=== PATIENT | male | born 1980 | race Caucasian/White ===

== ENCOUNTER 2018-10-10 21:27 | Emergency (ER) | payer BC ==
--- NOTE | 2018-10-10 23:18 | EDM.PDOC ---
ED HPI GENERAL MEDICAL PROBLEM - General Chief Complaint: Gastrointestinal Problem Stated Complaint: VOMITING Time Seen by Provider: 10/10/18 22:57 Source of Information: Reports: Patient, RN Notes Reviewed History Limitations: Reports: No Limitations - History of Present Illness INITIAL COMMENTS - FREE TEXT/NARRATIVE: The patient states that he developed nausea with emesis and epigastric abdominal pain around 03:00 this morning, and that he has vomited a lot today. There has not been any blood in his emesis. He describes the abdominal pain like a gas bubble or pressure. It extends to the right upper quadrant and through to his right scapular area. The pain is made worse if he belches, is upright, or lying on either side. He feels better if he is lying supine. No recent fever. He states that he had watery diarrhea 2 days ago, that resolved. No urinary symptoms. No lightheadedness when he stands. The patient states that he has had similar symptoms, about 2-4 times a year, over the past 4-5 years, but he has not had a prior medical evaluation for it, because his symptoms typically resolve after 3-4 hours. No recent spoiled food. No similarly ill contacts. No recent antibiotics. No recent travel. The patient does not have a PCP. Epigastric Pain Score (Numeric/FACES): 10 - Related Data Allergies Allergy/AdvReac Type Severity Reaction Status Date / Time No Known Allergies Allergy Verified 10/10/18 22:19 Home Meds: Home Meds Ondansetron [Zofran ODT] 1 tab PO Q8H PRN #10 tab.dis 10/11/18 [Rx] Past Medical History Musculoskeletal History: Reports: Fracture (C2, C4. Left forearm.) - Past Surgical History Neurological Surgical History: Reports: C-Spine (C2 internal fixation) Social & Family History - Tobacco Use Smoking Status *Q: Never Smoker - Alcohol Use Alcohol Use History: No - Recreational Drug Use Recreational Drug Use: No - Living Situation & Occupation Living situation: Reports: , with Spouse, with Family (5 kids) Occupation: Employed ([employer] Teacher) ED ROS GENERAL - Review of Systems Review Of Systems: ROS reveals no pertinent complaints other than HPI. ED EXAM, GI/ABD - Physical Exam Exam: See Below Exam Limited By: No Limitations General Appearance: Alert, WD/WN, No Apparent Distress Eyes: Bilateral: Normal Appearance, EOMI Ears: Normal External Exam, Hearing Grossly Normal Nose: Normal Inspection Throat/Mouth: Normal Inspection, Normal Lips, Normal Voice, No Airway Compromise Head: Atraumatic, Normocephalic Neck: Normal Inspection, Full Range of Motion Respiratory/Chest: No Respiratory Distress, Lungs Clear, Normal Breath Sounds, No Accessory Muscle Use Cardiovascular: Normal Peripheral Pulses, Regular Rate, Rhythm, No Edema, No Gallop, No JVD, No Murmur, No Rub GI/Abdominal Exam: Normal Bowel Sounds, Soft, No Organomegaly, No Distention, No Abnormal Bruit, No Mass, Tender (Right upper quadrant through the epigastrium. Nontender elsewhere.) (Male) Exam: Deferred Rectal (Males) Exam: Deferred Back Exam: Normal Inspection, Full Range of Motion. No: CVA Tenderness (L), CVA Tenderness (R) Extremities: Normal Inspection, Normal Range of Motion, No Pedal Edema, Normal Capillary Refill Neurological: Alert, Oriented, Normal Cognition, No Motor/Sensory Deficits Psychiatric: Normal Affect Skin Exam: Warm, Dry, Intact, Normal Color, No Rash Course - Vital Signs Last Recorded V/S: Last Vital Signs Temp 36.8 C 10/10/18 22:17 Pulse 92 10/10/18 22:17 Resp 18 10/10/18 22:17 BP 148/88 H 10/10/18 22:17 Pulse Ox 100 10/10/18 22:17 - Orders/Labs/Meds Labs: Laboratory Tests 10/10/18 10/10/18 10/10/18 Range/Units 22:23 22:23 22:23 WBC 16.39 H (4.23-9.07) K/mm3 RBC 6.45 H (4.63-6.08) M/mm3 Hgb 18.3 H (13.7-17.5) gm/L Hct 52.5 H (40.1-51.0) % MCV 81.4 (79.0-92.2) fl MCH 28.4 (25.7-32.2) pg MCHC 34.9 (32.2-35.5) g/dl RDW Std Deviation 40.3 (35.1-43.9) fL Plt Count 210 (163-337) K/mm3 MPV 10.9 (9.4-12.3) fl Neutrophils % (Manual) 74 H (40-60) % Band Neutrophils % 1 (0-10) % Lymphocytes % (Manual) 19 L (20-40) % Atypical Lymphs % 0 % Monocytes % (Manual) 5 (2-10) % Eosinophils % (Manual) 1 (0.8-7.0) % Basophils % (Manual) 0 L (0.2-1.2) Platelet Estimate Adequate RBC Morph Comment Normal Sodium 143 (136-145) mEq/L Potassium 3.8 (3.5-5.1) mEq/L Chloride 103 (98-107) mEq/L Carbon Dioxide 23 (21-32) mEq/L Anion Gap 20.8 H (5-15) BUN 18 (7-18) mg/dL Creatinine 1.4 H (0.7-1.3) mg/dL Est Cr Clr Drug Dosing 83.18 mL/min Estimated GFR (MDRD) 57 (>60) mL/min BUN/Creatinine Ratio 12.9 L (14-18) Glucose 124 H (74-106) mg/dL Calcium 10.4 H (8.5-10.1) mg/dL Total Bilirubin 0.8 (0.2-1.0) mg/dL AST 21 (15-37) U/L ALT 48 (16-63) U/L Alkaline Phosphatase 112 (46-116) U/L Total Protein 8.8 H (6.4-8.2) g/dl Albumin 4.6 (3.4-5.0) g/dl Globulin 4.2 gm/dL Albumin/Globulin Ratio 1.1 (1-2) Lipase 155 (73-393) U/L Meds: Medications Discontinued Medications Generic Name Dose Route Start Last Admin Trade Name Freq PRN Reason Stop Dose Admin Diatrizoate Meglum/Diatrizoate Sod 90 ml 10/11/18 00:23 10/11/18 01:20 Gastrografin 37% PO 10/11/18 00:24 90 ml ONETIME ONE Administration Hydromorphone HCl 1 mg 10/10/18 23:11 10/10/18 23:19 Dilaudid IVPUSH 10/10/18 23:12 1 mg ONETIME STA Administration Sodium Chloride 1,000 mls @ 150 mls/hr 10/10/18 23:15 10/10/18 23:19 Normal Saline IV 150 mls/hr ASDIRECTED BERNA Administration Iopamidol 100 ml 10/11/18 00:23 10/11/18 01:20 Isovue-370 (76%) IV 10/11/18 00:24 100 ml ONETIME ONE Administration Ondansetron HCl 4 mg 10/10/18 23:11 10/10/18 23:20 Zofran IVPUSH 10/10/18 23:12 4 mg ONETIME ONE Administration - Re-Assessments/Exams Free Text/Narrative Re-Assessment/Exam: 10/10/18 23:16 Although the patient states that his pain is epigastric, on examination, he has tenderness all the way to the right upper quadrant, and he states that his pain radiates through to his right scapular area, suggestive of cholecystitis. I have ordered blood work and a CT scan of the abdomen and pelvis, which will also help exclude an unusual presentation of appendicitis. In the meantime, the patient will be treated with IV Dilaudid, Zofran, and IV fluid. 10/11/18 02:45 CT of the abdomen and pelvis with oral and IV contrast is read by vRrenuka as: 1. Findings consistent with a gastroenteritis. 2. No evidence for bowel obstruction 3. Normal appendix right lower quadrant 10/11/18 02:49 Test results discussed with the patient. As above, the patient appears to have gastroenteritis. I will discharge him home with a prescription for Zofran ODT. He may take [id number] loperamide if his diarrhea recurs. I recommended that he stay adequately hydrated, and eat a bland diet if he is hungry. Departure - Departure Time of Disposition: 02:50 Disposition: Home, Self-Care 01 Condition: Good Clinical Impression: Gastroenteritis - Discharge Information *PRESCRIPTION DRUG MONITORING PROGRAM REVIEWED*: Not Applicable *COPY OF PRESCRIPTION DRUG MONITORING REPORT IN PATIENT PRINCESS: Not Applicable Prescriptions: Ondansetron [Zofran ODT] 1 tab PO Q8H PRN #10 tab.dis PRN Reason: Nausea/Vomiting Instructions: Viral Gastroenteritis, Adult, [id number] Referrals: PCP,None [Primary Care Provider] - Forms: ED Department Discharge Additional Instructions: You were seen in the emergency room for nausea, vomiting, and upper midline abdominal pain. Workup in the ER included blood work and a CT scan of your abdomen and pelvis with oral and IV contrast. Your blood work was unremarkable, but the CT scan found evidence of gastroenteritis. Based on your history, physical exam, and ER test, you are most likely suffering from viral gastroenteritis. As discussed, there are no medicines to get rid of the virus - will have to run its course, however, there are medicines that can be given to treat the symptoms. A prescription for the anti-nausea medicine Zofran has been sent to [facility], located in the [facility] across the [address] from the hospital. Dissolve one tablet of Zofran on your tongue up to every 8 hours, as needed for nausea/vomiting. If your diarrhea returns, take 2 tablets of [id number] loperamide (Imodium ) up front, then 1 tablet after each loose bowel movement, to a maximum of 8 tablets (16 mg) within a 24-hour period. Stay adequately hydrated. Gatorade is probably best. If you feel hungry, eat a bland diet, such as rice, oatmeal, bananas, or applesauce. If any other problems, please do not hesitate to return to the ER.
[2018-10-10] MEDS: HYDROmorphone 1 MG/ML Syringe IVPUSH STA (23:19)
[2018-10-10] MEDS: Sodium Chloride 0.9% 1,000 ML IV SCH (23:19)
[2018-10-10] MEDS: Ondansetron 4 MG/2 ML SDV IVPUSH ONE (23:20)
[2018-10-11] MEDS: Diatrizoate Meglumine/Diatrizoate Sodium 37% 120 ML Bottle PO ONE (01:20)
[2018-10-11] MEDS: Iopamidol 755 Mg/ML 200 ML Bottle IV ONE (01:20)
--- NOTE | 2018-10-11 06:52 | CT ---
CT abdomen and pelvis Technique: Multiple axial sections were obtained from above the dome of the diaphragm inferiorly through the pubic symphysis. Intravenous and oral contrast was utilized. Comparison: No prior abdominal imaging. Findings: Small portion of the visualized lung bases shows mild atelectasis. Liver contains no focal parenchymal abnormality. Gallbladder contains no calcified gallstones. Spleen appears within normal limits. Small hiatal hernia is seen with gastroesophageal reflux of contrast. Adrenal glands show no nodule. Pancreas is within normal limits. Kidney show symmetric contrast enhancement. No hydronephrosis or mass is seen. Aorta shows no aneurysm. No retroperitoneal adenopathy is seen. No pelvic mass or adenopathy is seen. Mildly dilated and fluid-filled loops of small bowel are seen. These findings occurred down to the terminal ileum. Findings are most likely due to ileus possibly from gastroenteritis. No free fluid or inflammatory change is seen. Appendix appears normal in size. Bone window settings were reviewed which appear within normal limits for the patient's age. Impression: 1. Dilated small bowel containing fluid. Ileus is the most likely etiology possibly from gastroenteritis. 2. Other incidental findings as noted above. Diagnostic code #3 I agree with preliminary report from [facility], finalized on 10/11/18, 3:40 AM Central Time
== END 2018-10-11 03:00 | disposition home or self-care (01) ==
LOC: SUPCPDRO 21:27 → JD.ED 21:27
DX: K52.9 Noninfective gastroenteritis and colitis, unspecified (principal)
CPT/HCPCS: 36415; 74177; 80053; 83690; 85007; 85027; 96361; 96374; 96375; 99284; J1170; J2405; J7040; Q9963; Q9967